=== PATIENT | female | born 1990 | race Caucasian/White ===

== ENCOUNTER 2018-10-30 15:56 | Inpatient (IN) ==
[2018-10-30] MEDS ORDERED: MEPERIDINE 50 MG/1 ML VIAL IV PRN (16:35)
[2018-10-30] MEDS ORDERED: LACTATED RINGERS 500 ML IV PRN (16:35)
[2018-10-30] MEDS ORDERED: ONDANSETRON 4 MG/2 ML VIAL IV PRN ×2 (16:35→17:19)
[2018-10-30] MEDS ORDERED: BUTORPHANOL 2 MG/ML VIAL IV PRN (16:35)
[2018-10-30] MEDS ORDERED: LACTATED RINGERS 250 ML IV ONE (16:35)
[2018-10-30] MEDS ORDERED: hydrOXYzine HCL 25 MG/1 ML VIAL IM PRN (16:37)
[2018-10-30] MEDS ORDERED: ePHEDrine 50 MG/ML AMP IV PRN (16:37)
[2018-10-30] MEDS ORDERED: NALOXONE 0.4 MG/ML VIAL IV PRN (16:37)
[2018-10-30] MEDS ORDERED: PROMETHAZINE 25 MG/1 ML VIAL IM ONE (16:37)
[2018-10-30] MEDS ORDERED: FAMOTIDINE 20 MG/2 ML VIAL IV ONE (16:37)
[2018-10-30] MEDS ORDERED: CITRIC ACID/SODIUM CITRATE 30 ML UDCUP PO ONE (16:37)
[2018-10-30] MEDS ORDERED: diphenhydrAMINE 50 MG/1 ML VIAL IV PRN (16:37)
[2018-10-30 16:46] LABS: Basophils % 0.3 % (0.0-0.8); Eosinophils # 0.2 10*3/uL (0.0-0.87); Eosinophils % 1.1 % (0.00-10.9); Hematocrit 39.9 VOL% (35.7-47.0); Hemoglobin 13.4 GM/DL (12.0-16.0); Immature Granulocytes % 0.9 %; Immature Granulocytes Absolute 0.13 #; Lymphocytes # 2.7 10*3/uL (1.4-4.0); Lymphocytes % 18.4 % (21.3-54.2); Mean Corpuscular HGB Conc 33.6 GM/DL (32-36); Mean Corpuscular Hemoglobin 31 PG (27-34); Mean Corpuscular Volume 91.9 FL (87-102); Mean Platelet Volume 13.6 FL (9.6-12.0); Monocytes # 0.9 10*3/uL (0.11-0.8); Neutrophils # 10.7 10*3/uL (1.4-7.4); Neutrophils % 73.3 % (38.7-73.9); Platelet Count 170 T/CUMM (130-400); Red Blood Count 4.34 MC/CUMM (3.8-5.5); Red Cell Distribution Width 12.9 % (9.3-17.3); White Blood Count 14.6 T/CUMM (4-12)
[2018-10-30] MEDS ORDERED: OXYTOCIN/LR 30 UNIT/1,000 ML BAG IV ONE (16:57)
[2018-10-30] MEDS ORDERED: OXYTOCIN/LR 20 UNIT/1,000 ML BAG IV SCH (17:00)
[2018-10-30] MEDS ORDERED: fentaNYL 2 MCG/ROPIV 0.2% EPID 100 ML EPIDURAL SCH (17:00)
[2018-10-30] MEDS ORDERED: LACTATED RINGERS 1,000 ML IV SCH (17:00)
[2018-10-30 17:11] LABS: Alanine Aminotransferase 16 U/L (13-56); Albumin 3.1 G/DL (3.4-5.0); Alkaline Phosphatase 198 U/L (45-117); Aspartate Amino Transferase 21 U/L (0-37); Bilirubin,Total < 0.39 MG/DL (0.2-1.0); Blood Urea Nitrogen 13 MG/DL (7-18); Calcium 8.6 MG/DL (8.5-10.1); Glucose 84 MG/DL (74-106); Potassium 4.2 MMOL/L (3.5-5.1); Sodium 136 MMOL/L (136-145); Total Protein 7.1 G/DL (6.4-8.3)
[2018-10-30] MEDS ORDERED: OXYTOCIN/LR 20 UNIT/1,000 ML BAG IV ONE (17:19)
[2018-10-30] MEDS ORDERED: HYDROCORTISONE 2.5% RECTAL CREAM 30 GM TUBE TOP PRN (17:19)
[2018-10-30] MEDS ORDERED: BISACODYL 10 MG SUPP RECTAL PRN (17:19)
[2018-10-30] MEDS ORDERED: LANOLIN 50% CREAM 0.3 OZ TUBE TOP PRN (17:19)
[2018-10-30] MEDS ORDERED: BENZOCAINE 20%/MENTHOL 0.5% SPRAY 56 GM CAN TOP PRN (17:19)
[2018-10-30] MEDS ORDERED: oxyCODONE/ACETAMINOPHEN 5-325 MG TABLET PO PRN (17:19)
[2018-10-30] MEDS ORDERED: ACETAMINOPHEN 325 MG TABLET PO PRN (17:19)
[2018-10-30] MEDS ORDERED: WITCH HAZEL PADS 100/JAR TOP PRN (17:19)
[2018-10-30 17:39] LABS: Cord Arterial Blood HCO3 19.8 MMOL/L
[2018-10-30 17:42] LABS: Cord Venous Blood HCO3 21.8 MMOL/L; Cord Venous Blood PCO2 41.8 MMHG; Cord Venous Blood PO2 27.8
[2018-10-30] MEDS: IBUPROFEN 800 MG TABLET PO PRN ×2 (17:47→23:54)
[2018-10-30] MEDS ORDERED: RHO(D) IMMUNE GLOBULIN 300 MCG SYRINGE IM ONE (18:00)
[2018-10-30] MEDS ORDERED: MEASLES/MUMPS/RUBELLA VACCINE 0.5 ML VIAL SUBCUT ONE (18:00)
[2018-10-30] MEDS ORDERED: DIPH/TET/ACEL PERT BOOSTER VACCINE 0.5 ML VIAL IM ONE (18:00)
[2018-10-30] MEDS ORDERED: oxyCODONE/ACETAMINOPHEN 5-325 MG TABLET PO ONE (20:05)
[2018-10-30 21:23] LABS: Hepatitis B Surface Ag Quant 0.73 Index; Hepatitis B Surface Ag Result Negative (Negative)
[2018-10-30] MEDS: DOCUSATE SODIUM 100 MG CAPSULE PO SCH (22:20)
[2018-10-31 02:08] LABS: Basophils % 0.2 % (0.0-0.8); Eosinophils # 0.1 10*3/uL (0.0-0.87); Eosinophils % 0.6 % (0.00-10.9); Hematocrit 33.5 VOL% (35.7-47.0); Hemoglobin 11.3 GM/DL (12.0-16.0); Immature Granulocytes % 0.7 %; Immature Granulocytes Absolute 0.11 #; Lymphocytes # 2.1 10*3/uL (1.4-4.0); Lymphocytes % 13.3 % (21.3-54.2); Mean Corpuscular HGB Conc 33.7 GM/DL (32-36); Mean Corpuscular Hemoglobin 32 PG (27-34); Mean Corpuscular Volume 94.1 FL (87-102); Mean Platelet Volume 13.7 FL (9.6-12.0); Monocytes # 1.1 10*3/uL (0.11-0.8); Monocytes % 6.8 % (1.7-12.7); Neutrophils # 12.2 10*3/uL (1.4-7.4); Neutrophils % 78.4 % (38.7-73.9); Platelet Count 117 T/CUMM (130-400); Red Blood Count 3.56 MC/CUMM (3.8-5.5); Red Cell Distribution Width 12.9 % (9.3-17.3); White Blood Count 15.6 T/CUMM (4-12)
[2018-10-31] MEDS: oxyCODONE/ACETAMINOPHEN 5-325 MG TABLET PO PRN ×4 (02:16→20:44)
[2018-10-31] MEDS: SIMETHICONE CHEW 80 MG TABLET PO PRN ×4 (02:25→20:44)
[2018-10-31] MEDS: IBUPROFEN 800 MG TABLET PO PRN ×2 (06:30→12:29)
[2018-10-31] MEDS: DOCUSATE SODIUM 100 MG CAPSULE PO SCH ×2 (08:22→20:44)
[2018-10-31] MEDS ORDERED: RHO(D) IMMUNE GLOBULIN 300 MCG SYRINGE IM ONE (15:02)
[2018-11-01] MEDS: IBUPROFEN 800 MG TABLET PO PRN (00:09)
[2018-11-01] MEDS: oxyCODONE/ACETAMINOPHEN 5-325 MG TABLET PO PRN (06:09)
[2018-11-01 07:29] VITALS: BP 106/58
[2018-11-01] MEDS: DOCUSATE SODIUM 100 MG CAPSULE PO SCH (08:50)
== END 2018-11-01 12:50 | disposition home or self-care (01) | DRG 560 ==
LOC: N.LDOUT 15:56 → N.LD 16:00 → N.OB 21:40
PROVIDERS: ADMIT Obstetrics & Gynecology; ATTEND Obstetrics & Gynecology

== ENCOUNTER 2021-06-10 14:45 | Inpatient (IN) ==
[2021-06-10] MEDS ORDERED: OXYTOCIN/LR 20 UNIT/1,000 ML BAG IV PRN (16:01)
[2021-06-10] MEDS ORDERED: ONDANSETRON 4 MG/2 ML VIAL IV PRN ×2 (16:01→18:20)
[2021-06-10] MEDS ORDERED: LACTATED RINGERS 500 ML IV PRN (16:01)
[2021-06-10] MEDS ORDERED: LACTATED RINGERS 1,000 ML IV PRN (16:01)
[2021-06-10] MEDS ORDERED: MEPERIDINE 50 MG/1 ML VIAL IV PRN (16:01)
[2021-06-10 16:16] LABS: Basophils % 0.2 % (0.0-0.8); Eosinophils # 0.1 10*3/uL (0.0-0.87); Eosinophils % 0.9 % (0.00-10.9); Hematocrit 34.9 VOL% (35.7-47.0); Hemoglobin 11.7 GM/DL (12.0-16.0); Immature Granulocytes % 0.6 %; Immature Granulocytes Absolute 0.08 #; Lymphocytes # 1.5 10*3/uL (1.4-4.0); Lymphocytes % 10.5 % (21.3-54.2); Mean Corpuscular HGB Conc 33.5 GM/DL (32-36); Mean Corpuscular Volume 94.6 FL (87-102); Mean Platelet Volume 11.5 FL (9.6-12.0); Monocytes % 5.8 % (1.7-12.7); Platelet Count 184 T/CUMM (130-400); Red Blood Count 3.69 MC/CUMM (3.8-5.5); Red Cell Distribution Width 13.4 % (9.3-17.3); White Blood Count 14.1 T/CUMM (4-12)
[2021-06-10] MEDS ORDERED: NALOXONE 0.4 MG/ML VIAL IV PRN (16:23)
[2021-06-10] MEDS ORDERED: LACTATED RINGERS 1,000 ML IV ONE (16:23)
[2021-06-10] MEDS ORDERED: diphenhydrAMINE 50 MG/1 ML VIAL IV PRN ×2 (16:23)
[2021-06-10] MEDS ORDERED: hydrOXYzine HCL 25 MG/1 ML VIAL IM PRN (16:23)
[2021-06-10] MEDS ORDERED: ePHEDrine 50 MG/ML VIAL IV PRN (16:23)
[2021-06-10] MEDS ORDERED: ONDANSETRON 4 MG/2 ML VIAL IV ONE (16:23)
[2021-06-10] MEDS ORDERED: FAMOTIDINE 20 MG/2 ML VIAL IV ONE (16:23)
[2021-06-10] MEDS ORDERED: PROMETHAZINE 25 MG/1 ML VIAL IM ONE (16:23)
[2021-06-10] MEDS ORDERED: fentaNYL 2 MCG/ROPIV 0.2% EPID 100 ML EPIDURAL SCH (16:30)
[2021-06-10 16:34] LABS: Albumin 2.8 G/DL (3.4-5.0); Bilirubin,Total 0.4 MG/DL (0.20-1.00); Calcium 8.2 MG/DL (8.5-10.1); Osmolality,Calculated 273.4 MOS/KG (273-304); Potassium 3.8 MMOL/L (3.5-5.1); Total Protein 6.5 G/DL (6.4-8.2); Uric Acid 4.2 MG/DL (2.6-6.0)
[2021-06-10] MEDS: CITRIC ACID/SODIUM CITRATE 30 ML UDCUP PO ONE ×2 (16:39→16:41)
[2021-06-10] MEDS ORDERED: LIDOCAINE 1% 50 ML VIAL ONE (17:56)
[2021-06-10] MEDS ORDERED: WITCH HAZEL PADS 100/JAR TOP PRN (18:20)
[2021-06-10] MEDS ORDERED: BISACODYL 10 MG SUPP RECTAL PRN (18:20)
[2021-06-10] MEDS ORDERED: BENZOCAINE 20%/MENTHOL 0.5% SPRAY 56 GM CAN TOP PRN (18:20)
[2021-06-10] MEDS ORDERED: MEASLES/MUMPS/RUBELLA VACCINE 0.5 ML VIAL SUBCUT ONE (18:20)
[2021-06-10] MEDS ORDERED: RHO(D) IMMUNE GLOBULIN 300 MCG SYRINGE IM ONE (18:20)
[2021-06-10] MEDS ORDERED: LANOLIN 50% CREAM 0.3 OZ TUBE TOP PRN (18:20)
[2021-06-10] MEDS ORDERED: HYDROCORTISONE 2.5% RECTAL CREAM 30 GM TUBE TOP PRN (18:20)
[2021-06-10] MEDS ORDERED: DIPH/TET/ACEL PERT BOOSTER VACCINE 0.5 ML VIAL IM ONE (18:20)
[2021-06-10] MEDS ORDERED: OXYTOCIN/LR 20 UNIT/1,000 ML BAG IV ONE (18:20)
[2021-06-10] MEDS ORDERED: oxyCODONE/ACETAMINOPHEN 5-325 MG TABLET PO PRN (18:20)
[2021-06-10] MEDS ORDERED: ACETAMINOPHEN 325 MG TABLET PO PRN (18:20)
[2021-06-10 18:25] LABS: Cord Arterial Blood HCO3 18.7 MMOL/L
[2021-06-10 18:28] LABS: Cord Venous Blood HCO3 21.8 MMOL/L; Cord Venous Blood PCO2 37.9 MMHG; Cord Venous Blood PO2 40.2
[2021-06-10] MEDS: IBUPROFEN 800 MG TABLET PO PRN (22:07)
[2021-06-10] MEDS: DOCUSATE SODIUM 100 MG CAPSULE PO SCH (22:42)
[2021-06-10] MEDS: oxyCODONE/ACETAMINOPHEN 5-325 MG TABLET PO PRN (23:08)
[2021-06-11] MEDS: IBUPROFEN 800 MG TABLET PO PRN ×3 (03:42→19:36)
[2021-06-11 05:27] LABS: Basophils % 0.2 % (0.0-0.8); Eosinophils # 0.2 10*3/uL (0.0-0.87); Eosinophils % 1.3 % (0.00-10.9); Hematocrit 30.9 VOL% (35.7-47.0); Hemoglobin 10.1 GM/DL (12.0-16.0); Immature Granulocytes % 0.5 %; Immature Granulocytes Absolute 0.08 #; Lymphocytes # 1.9 10*3/uL (1.4-4.0); Lymphocytes % 12.4 % (21.3-54.2); Mean Corpuscular HGB Conc 32.7 GM/DL (32-36); Mean Corpuscular Volume 95.1 FL (87-102); Mean Platelet Volume 12.5 FL (9.6-12.0); Monocytes % 7.5 % (1.7-12.7); Neutrophils % 78.1 % (38.7-73.9); Platelet Count 157 T/CUMM (130-400); Red Blood Count 3.25 MC/CUMM (3.8-5.5); Red Cell Distribution Width 13.4 % (9.3-17.3); White Blood Count 14.9 T/CUMM (4-12)
[2021-06-11] MEDS: oxyCODONE/ACETAMINOPHEN 5-325 MG TABLET PO PRN ×3 (05:50→20:52)
[2021-06-11] MEDS: DOCUSATE SODIUM 100 MG CAPSULE PO SCH ×2 (08:28→20:41)
[2021-06-11] MEDS: FERROUS SULFATE 325 MG TABLET PO SCH ×2 (08:28→20:40)
[2021-06-12] MEDS: IBUPROFEN 800 MG TABLET PO PRN ×2 (04:23→10:12)
[2021-06-12] MEDS: DOCUSATE SODIUM 100 MG CAPSULE PO SCH (08:48)
[2021-06-12] MEDS: FERROUS SULFATE 325 MG TABLET PO SCH (08:48)
[2021-06-12 09:18] VITALS: BP 110/62
== END 2021-06-12 14:15 | disposition home or self-care (01) | DRG 807 ==
LOC: N.LDOUT 14:45 → N.LD 14:50 → N.OB 22:43
PROVIDERS: ADMIT Obstetrics & Gynecology; ATTEND Obstetrics & Gynecology